=== PATIENT | female | born 1940 ===

== ENCOUNTER → 2024-07-02 | Outpatient (CLI) | payer OTHER ==
[2024-07-02 19:36] LABS: Microalb/Creat Ratio UR, Rand 21.087 mg/g (0.000-30.000); Microalbumin, Random Urine 29.1 mg/L (0.000-20.000)
== END ==
LOC: LAB SHORT 12:53 → LAB 12:53
PROVIDERS: Physician Assistant
DX: E11.9 Type 2 diabetes mellitus without complications (principal)
CPT/HCPCS: 82043; 82570